=== PATIENT | female | born 1975 | race Caucasian/White ===

== ENCOUNTER 2017-05-14 13:26 | Emergency (ER) | payer OTHER ==
[~2017-05-14] VITALS: Ht 160 cm; Wt 65.8 kg
--- NOTE | ~2017-05-14 | EKG ---
PATIENT: RENETTA MCCLOUD UNIT #: [id number] Ventricular Rate: 69 BPM Atrial Rate: 69 BPM P-R Interval: 128 ms QRS Duration: 90 ms Q-T Interval: 450 ms QTC Calculation(Bezet): 482 ms P [place]: 50 degrees Calculated R [place]: 74 degrees Calculated T [place]: 72 degrees Diagnosis Line: Poor data quality, interpretation may be Diagnosis Line: adversely affected Diagnosis Line: Normal sinus rhythm Diagnosis Line: Prolonged QT Diagnosis Line: Abnormal ECG Diagnosis Line: When compared with ECG of 17-JUN-2013 10:09, Diagnosis Line: T wave inversion no longer evident in Inferior Diagnosis Line: leads Diagnosis Line: T wave inversion no longer evident in Diagnosis Line: Anterolateral leads Diagnosis Line: Confirmed by DEEPAK WONG MD ([id number]) on Diagnosis Line: 05/15/2017 9:45:14 AM INTERPRETING MD: MARVIN GARCIA
[~2017-05-14 13:26] MED LIST: ACETAMINOPHEN PO; AMBIEN PO; AMOXIL500 MG PO; APRESOLINE; APRESOLINE PO; ASPIRIN81 M1; ASPIRIN81 M2 PO; ASPIRINEC PO; AUGMENTIN PO; AUGMENTIN875 M1 DOB; BACTRIM DS TABL1 TA1 PO; BENTYL10 MG DOB; BENTYL20 MG PO; BUMEX2 MG; CARDIZEM CD; CATAPRES0.1 MG PO; CLONIDINE; CLONIDINE HCL0.1 MG PO; CLONIDINE PO; DIAZEPAM PO; EFFEXOR; FAMOTIDINE PO; FIORICET 50-321 EACH PO; FLEXERIL PO; FLEXERIL10 MG PO; HCTZ PO; HYDRALAZINE HCL25 MG PO; HYDROCODON-ACE1 EAC7 PO; IBUPROFEN800 MG PO; IMDUR PO; ISOSORBIDE DINI10 MG PO; KCL PO; KEFLEX500 MG PO; KLOR-CON PO; LASIX PO; LASIX20 MG PO; LEXAPRO; LISINOPRIL; LISINOPRIL PO; LISINOPRIL20 MG PO; LOPRESSOR; LOPRESSOR PO; LORCET 10/650 T1 TAB; LORCET 10/650 T1 TAB PO; LORTAB 10/500 T1 TAB PO; LORTAB 101 TAB 10/5 PO; LORTAB 5/500 TA1 TA1 PO; LORTAB 7.5-5001 TAB PO; LOVASTATIN20 MG PO; LYRICA PO; MEDROL PO; METOPROLOL TAR25 MG PO; MEVACOR20 M1 PO; MIDRIN CAPSULE1 CAP PO; NEXIUM PO; NORVASC PO; PACERONE; PENICILLIN V P500 MG PO; PEPCID AC20 M2 PO; PERCOCET5/325; PHENERGAN25 M1 PO; PHENERGAN25 MG PO; PRAVACHOL; PRAVACHOL20 MG PO; PRILOSEC PO; PROTONIX PO; PROTONIX20 MG PO; TOPAMAX PO; TOPROL XL; TOPROL XL 50 MG50 MG PO; TOPROL XL PO; TYLOX 5/500 CAP1 CAP PO; VICODIN 5/500 T1 TAB PO; VICODIN PO; ZANTAC PO; ZESTORETIC; ZESTORETIC 20/11 TAB; ZESTORETIC 20/11 TAB PO; ZESTRIL40 MG PO; ZITHROMAX PO; ZOFRAN PO
[2017-05-14 15:03] LABS: BASOPHIL% 0.5 % (0-2.5); EOSINOPHIL# 0.2 X10e3 (0-0.7); EOSINOPHIL% 2.4 % (0.0-7.0); HEMATOCRIT 37.2 % (35.0-45.0); HEMOGLOBIN 12.6 gm/dL (12.0-16.0); LYMPHOCYTE# 3.6 X10e3 (1.0-3.5); LYMPHOCYTE% 46.1 % (17.0-45.0); MEAN CELL VOLUME 83.7 FL (83-96); MEAN CORPUSCULAR HEMOGLOBIN 28.3 PG (28-34); MEAN CORPUSCULAR HGB CONC 33.8 g/dL (30-36); MEAN PLATELET VOLUME 8.3 FL (6.5-11.5); MONOCYTE# 0.4 X10e3 (0-1.0); MONOCYTE% 5.2 % (3.0-12.0); NEUTROPHIL# 3.5 X10e3 (1.5-7.1); NEUTROPHIL% 45.8 % (40-75); PLATELET COUNT 256 X10e3 (140-420); RED BLOOD COUNT 4.45 X10e (3.90-5.30); WHITE BLOOD COUNT 7.7 X10e3 (4.0-10.5)
[2017-05-14 15:05] LABS: DIFF IND NO
[2017-05-14 15:12] LABS: URINE SOURCE CLEAN CATCH
[2017-05-14 15:20] LABS: URINE APPEARANCE CLEAR; URINE BILIRUBIN NEG (NEG); URINE BLOOD NEG (NEG); URINE COLOR YELLOW; URINE GLUCOSE NEG (NEG); URINE KETONE NEG (NEG); URINE LEUKOCYTE ESTERASE NEG (NEG); URINE NITRATE NEG (NEG); URINE PH 6.5 (5-8); URINE PROTEIN NEG (NEG); URINE SPECIFIC GRAVITY 1.015 (1.003-1.035); URINE UROBILINOGEN 0.2 MG/DL (NEG)
[2017-05-14 15:27] LABS: ALBUMIN SERUM 3.5 g/dL (3.5-5.0); BILIRUBIN, DIRECT 0.1 mg/dL (0.0-0.2); BILIRUBIN,INDIRECT 0.3 mg/dL (0.0-0.9); BILIRUBIN,TOTAL 0.4 mg/dL (0.2-2.0); CALCIUM SERUM 8.8 mg/dL (8.4-10.2); CREATININE SERUM 0.5 mg/dL (0.6-1.4); GLOM FILT RATE Estimated 118.6 mL/min (>60); POTASSIUM 3.5 mmol/L (3.5-5.1); PROTEIN TOTAL SERUM 6.4 g/dL (6.0-8.3)
[2017-05-14 15:29] LABS: CULTURE INDICATED? NO
[2017-05-14 15:30] LABS: POC - CKMB 1.5 ng/mL (0.0-7.9); POC - TROPONIN <0.05 ng/mL (<=0.05)
[2017-05-14 16:51] LABS: AMPHETAMINE POS (NEG); BARBITURATES NEG (NEG); BENZODIAZEPINES NEG (NEG); COCAINE NEG (NEG); MARIJUANA NEG (NEG); OPIATES NEG (NEG); TRICYCLIC ANTIDEPRESSANTS NEG (NEG); U METHADONE NEG (NEG)
[2017-05-14 17:16] LABS: POC - CKMB 1.7 ng/mL (0.0-7.9); POC - TROPONIN <0.05 ng/mL (<=0.05)
[2017-05-14 18:08] LABS: POC - CKMB 1.6 ng/mL (0.0-7.9); POC - TROPONIN <0.05 ng/mL (<=0.05)
== END 2017-05-14 18:42 | disposition home or self-care (01) ==
LOC: CED 13:26
PROVIDERS: Emergency Medicine
DX: R53.83 Other fatigue (principal); I10 Essential (primary) hypertension; F17.200 Nicotine dependence, unspecified, uncomplicated; Z88.5 Allergy status to narcotic agent; Z88.8 Allergy status to other drugs, medicaments and biological substances
CPT/HCPCS: 36415; 80048; 80076; 80307; 81003; 82553; 84484; 84703; 85025; 93005; 99284